=== PATIENT | female | born 1945 | race Caucasian/White ===

== ENCOUNTER 2023-06-23 08:10 | Emergency (ER) | payer MEDICARE, OTHER, SELFPAY ==
[2023-06-23] VITALS (7 sets, daily range): BP systolic 142–186; BP diastolic 68–99; PULSE 85–98; RESP 16–22; TEMP 36.4; O2SAT 94–95; BMI 29.9
--- NOTE | 2023-06-23 08:24 | ED.FALL ---
HPI - Fall General Chief Complaint: Fall Stated Complaint: fall, L wrist injury Time Seen by Provider: 06/23/23 08:24 Source: patient Mode of arrival: Ambulatory Limitations: no limitations History of Present Illness HPI Narrative: This is a 78-year-old on Eliquis with history of atrial fibrillation, hypertension, hypothyroidism, CHF with complaint of ground level fall. Patient states last night she went up to go use the bathroom she decided not to turn the lights on sort of lost track of where she was walking and missed the door way. She states she fell on her left arm. She did hit her head. She states no loss of consciousness, no headache, no neck or back pain, no chest pain or shortness of breath. No nausea or vomiting, no numbness tingling or weakness. She has pain in the left wrist that radiates upwards. It is painful to move her fingers but she denies any weakness numbness or tingling. She does have some bruising over the dorsum hand in the wrist. Patient states this happened last night. She lives independently with her . Patient states has had a prior lumpectomy. Former smoker, alcohol 1 drink nightly few times a week, denies any recreational drugs. Related Data Previous Rx's Medication Instructions Recorded tramadol 50 mg tablet 50 mg PO Q6H PRN pain #10 tabs 06/23/23 Allergies Allergy/AdvReac Type Severity Reaction Status Date / Time No Known Drug Allergies Allergy Verified 06/23/23 08:18 Review of Systems Review of Systems ROS Unobtainable: All systems reviewed & are unremarkable except as noted in HPI and below Patient History Social History Smoking Status: Former smoker Smoking Status: Former smoker alcohol intake frequency: a few times a week Alcohol type: wine Substance Use Type: does not use Exam Narrative Exam Narrative: GEN: Patient appears inmild distress. HEAD: No evidence of trauma, no raccoon/Arteaga sign. NECK: Nontender, painless range of motion, trachea midline Negative Nexus criteria, show midline line tenderness, distracting injury, altered mental status, neuro deficit, recent EtOH. EYES: PERRLA, EOMI ENT: External inspection normal, trachea is midline, Nares are clear, no septal hematoma, no dental or oral injury, airway is normal and with normal occlusion, No bony tenderness RESP: Chest is nontender and has symmetric movement, no ecchymosis, breath sounds are normal no crackles, wheezes or rales CVS: Heart sounds are normal, no murmur noted, No JVD. ABG/GI: Nontender, soft, normal bowel sounds, no distention, no organomegaly, pelvic rock is negative NEURO: Oriented AOx3, neuro is grossly intact, sensation and motor is normal all 4 extremities moving, cranial nerves II through XII are intact, GCS is 15 PSYCH: Normal mood and affect SKIN: Intact, warm and dry, no crepitus and without decubitus BACK: No CVA tenderness, no vertebral tenderness, no step-off's, no crepitus EXT: Patient has some swelling and ecchymosis of the left extending over the dorsum of the hand. No bony tenderness of the fingers, metacarpals. Patient is tender over the carpal bones. Does have little bit of mild deformity. Patient's has no bony tenderness of the elbow, humerus or shoulder. Has decreased movement at the wrist but otherwise normal range of movement of all 5 fingers with normal flexion, extension, adduction and abduction. Hips are nontender, no pedal edema, normal color and temperature, normal range of motion of extremities with normal tendon exam, 2+ pulses in all four extremities Initial Vital Signs Initial Vital Signs: Vital Signs Temperature 97.6 F 06/23/23 08:19 Pulse Rate 85 06/23/23 08:19 Respiratory Rate 18 06/23/23 08:19 Blood Pressure 186/99 H 06/23/23 08:19 Pulse Oximetry 95 06/23/23 08:19 Oxygen Delivery Method Room Air 06/23/23 08:19 Procedures Orthopedic Fracture Reduction Fracture #1: Side: left Fracture Reduction Location: radius and ulna Analgesia: hematoma block Technique: direct manipulation and traction/counter-traction Post-reduction neuro exam: intact and no change Post-reduction vascular exam: intact and no change Splint Applied: Yes Patient Tolerated Procedure: Well and No complications Orthopedic Splinting/Casting Injury #1: Upper Extremity Injury Location: wrist Upper Extremity Immobilizer: sugar tong splint Post splinting neuro exam: intact and no change Post splinting vascular exam: intact Placed by: Provider Scores [place] CT Head Rule Patient on blood thinners: Yes Age greater or equal to 65 years: Yes GCS [place] coma scale eye opening: Spontaneous [place] coma scale verbal response: Orientated [place] coma scale motor response: Obey commands [place] coma scale total score: 15 Course Orders Ordered: ED Orders 06/23/23 08:32 CT cervical spine wo con Stat CT head/brain wo con Stat XR wrist LT min 3V Stat Vital Signs Vital signs: Vital Signs - 8 hr 06/23/23 08:19 06/23/23 08:23 06/23/23 08:26 Temperature 97.6 F Pulse Rate 85 95 H Respiratory Rate 18 16 Blood Pressure 186/99 H Pulse Oximetry 95 95 Oxygen Delivery Method Room Air Room Air MDM - Fall Imaging Data CT scan - head: Radiologist's Impression: Close Wrist X-Ray 06/23/[address] (Signed) Sal Corado - 06/23/[address] (Signed) Sal Corado - 06/23/23 Launch?[place] [address] CT Scan Report Signed Patient: Janessa Feldman MR#: [id number] : 1945 Acct:[id number] Age/Sex: 78 / F Date of Service: 06/23/23 Loc: ED Accession Number: [id number] Procedure: CT head/brain wo con Ordering Provider: Naty Brown D.O. PROCEDURE: CT HEAD/BRAIN WO CON INDICATIONS: fall, left wrist pain, hit head on eliquis TECHNIQUE: Noncontrast 4.5 mm thick angled axial sections acquired from the foramen magnum to the vertex, with coronal and sagittal reformats. For radiation dose reduction, the following was used: automated exposure control, adjustment of mA and/or kV according to patient size. COMPARISON: None. FINDINGS: Image quality: Diagnostic. CSF spaces: Basal cisterns are patent. No extra-axial fluid collections. The ventricles are symmetric in size and shape. Brain: No intracranial bleeds or masses. There is cerebral volume loss for age, with resultant ventricular and sulcal prominence. There are periventricular and deep white matter chronic small vessel ischemic changes. There is intracranial internal carotid artery atherosclerosis. Skull and face: Calvarium and visualized facial bones appear intact, without suspicious lesions. Sinuses: Visualized sinuses and mastoids are clear. IMPRESSION: No acute intracranial pathology. Dictated by: Sal Corado M.D. on 06/23/2023 at 8:59 Approved by: Sal Corado M.D. on 06/23/2023 at 9:00 CT - cervical spine: Radiologist's Impression: Close Wrist X-Ray 06/23/[address] (Signed) Abner Coradoic - 06/23/[address] (Signed) Jose Coradoderic - 06/23/23 Launch?[address] [address] [address] Scan Report Signed Patient: Janessa Feldman MR#: [id number] : 1945 Acct:[id number] Age/Sex: 78 / F Date of Service: 06/23/23 Loc: ED Accession Number: [id number] Procedure: CT cervical spine wo con Ordering Provider: Naty Brown D.O. PROCEDURE: CT CERVICAL SPINE WO CON INDICATIONS: fall, left wrist pain, hit head on eliquis TECHNIQUE: Noncontrast 3 mm thick sections acquired from the skull base to the T4 level. Sagittal and coronal reformats were then constructed. For radiation dose reduction, the following was used: automated exposure control, adjustment of mA and/or kV according to patient size. COMPARISON: None. FINDINGS: Image quality: Excellent. Bones: No fractures or dislocations. Visualized superior ribs are intact. Mild cervical spondylosis. Soft tissues: Prevertebral soft tissues are normal in thickness. No paravertebral hematomas. No apical pneumothoraces. IMPRESSION: 1. No acute cervical fracture or dislocation. 2. Mild cervical spondylosis. Dictated by: Sal Corado M.D. on 06/23/2023 at 8:58 Approved by: Sal Corado M.D. on 06/23/2023 at 8:59 Extremity x-ray #1: Radiologist's Impression: Close Wrist X-Ray (Signed) [facility] - 06/23/[address] (Signed) [facility] - 06/23/[address] (Signed) [facility] - 06/23/23 Launch?[address] [address] XRay Report Signed Patient: Janessa Feldman MR#: [id number] : 1945 Acct:[id number] Age/Sex: 78 / F Date of Service: 06/23/23 Loc: ED Accession Number: [id number] Procedure: XR wrist LT min 3V Ordering Provider: Naty Brown D.O. PROCEDURE: XR WRIST LT MIN 3V INDICATIONS: fall, left wrist pain, hit head on eliquis TECHNIQUE: 4 views of the wrist were acquired. COMPARISON: None. FINDINGS: Bones: Impacted comminuted fracture of the distal radius extending to the articular surface with dorsal angulation of the major distal fragment. Comminuted associated distal ulna fracture, with overriding and displacement. No suspicious bony lesions. Primary osteoarthritis of the wrist. Findings are most significant involving the thumb carpometacarpal joint. Soft tissues: No suspicious soft tissue calcifications. IMPRESSION: 1. Comminuted impacted distal radius fracture with displacement and involvement of the articular surface and dorsal angulation. 2. Associated distal ulna comminuted fracture. Dictated by: Sal Corado M.D. on 06/23/2023 at 9:17 Approved by: Sal Corado M.D. on 06/23/2023 at 9:18 MDM Narrative Medical decision making narrative: Patient had mechanical ground level fall last night. Did hit her head is on Eliquis and based on age has a appropriate for head CT and C-spine, she does not have any neurologic complaints. Does have bruising and tenderness over the left wrist wrist x-ray was obtained as well. Head CT is negative. CT C-spine shows no acute change, mild cervical spondylosis. Wrist x-ray Comminuted impacted distal radius fracture with displacement involvement the articular surfaces and dorsal angulation, associated distal ulna comminuted fracture. Discussed with patient verbal consent for hematoma block. Splint was placed with myself and nursing with traction counter traction direct manipulation besides attempted improved alignment Patient neurovascularly intact placed. Discussed need for follow-up. All questions answered. Discussed return precautions including for head injury all questions answered. Discharge Plan Departure Patient Disposition: Home Clinical Impression: Fracture of wrist Instructions: How to Prevent Falls Activity Restrictions/Additional Instructions: Follow up with Orthopedic surgery in the next 10 days for recheck. Please call your office for an appointment today or tomorrow. Contact information is below. You may take Tylenol up to a 1000 mg every 6 hours as needed for pain. If inadequate for pain you can take narcotic pain medication 1-2 tablets every 6 hours as needed. This medication can make you sleepy do not drive, perform hazardous activities or make any major decisions while taking it. This medication will make you constipated please take a stool softener once to twice daily until stools are soft and regular. Prescription sent to [facility]. Splint Care: Keep splint clean and dry. Elevated affected body part to decrease swelling. OK to use ice pack on the affected body part. Use for 15-20 minutes each time, for 5-6x per day. If you develop worsening pain, numbness, tingling, discoloration of the affected body part, loosen the splint by loosening the DOMINIK wrap, and either see your doctor for an urgent re-assessment, or return to the Emergency Department. Return to the Emergency Department for any new or worsening symptoms. Prescriptions: New tramadol 50 mg tablet 50 mg PO Q6H PRN (Reason: pain) Qty: 10 0RF Referrals: Stevan León MD [Physician] - Stand Alone Forms: Patient Portal/API
--- NOTE | 2023-06-23 08:32 | DI.RAD.S_ITS ---
PROCEDURE: XR WRIST LT MIN 3V INDICATIONS: fall, left wrist pain, hit head on eliquis TECHNIQUE: 4 views of the wrist were acquired. COMPARISON: None. FINDINGS: Bones: Impacted comminuted fracture of the distal radius extending to the articular surface with dorsal angulation of the major distal fragment. Comminuted associated distal ulna fracture, with overriding and displacement. No suspicious bony lesions. Primary osteoarthritis of the wrist. Findings are most significant involving the thumb carpometacarpal joint. Soft tissues: No suspicious soft tissue calcifications. IMPRESSION: 1. Comminuted impacted distal radius fracture with displacement and involvement of the articular surface and dorsal angulation. 2. Associated distal ulna comminuted fracture. Dictated by: Sal Corado M.D. on 06/23/2023 at 9:17 Approved by: Sal Corado M.D. on 06/23/2023 at 9:18
--- NOTE | 2023-06-23 08:32 | DI.CT.S_ITS ---
PROCEDURE: CT CERVICAL SPINE WO CON INDICATIONS: fall, left wrist pain, hit head on eliquis TECHNIQUE: Noncontrast 3 mm thick sections acquired from the skull base to the T4 level. Sagittal and coronal reformats were then constructed. For radiation dose reduction, the following was used: automated exposure control, adjustment of mA and/or kV according to patient size. COMPARISON: None. FINDINGS: Image quality: Excellent. Bones: No fractures or dislocations. Visualized superior ribs are intact. Mild cervical spondylosis. Soft tissues: Prevertebral soft tissues are normal in thickness. No paravertebral hematomas. No apical pneumothoraces. IMPRESSION: 1. No acute cervical fracture or dislocation. 2. Mild cervical spondylosis. Dictated by: Sal Corado M.D. on 06/23/2023 at 8:58 Approved by: Sal Corado M.D. on 06/23/2023 at 8:59
--- NOTE | 2023-06-23 08:32 | DI.CT.S_ITS ---
PROCEDURE: CT HEAD/BRAIN WO CON INDICATIONS: fall, left wrist pain, hit head on eliquis TECHNIQUE: Noncontrast 4.5 mm thick angled axial sections acquired from the foramen magnum to the vertex, with coronal and sagittal reformats. For radiation dose reduction, the following was used: automated exposure control, adjustment of mA and/or kV according to patient size. COMPARISON: None. FINDINGS: Image quality: Diagnostic. CSF spaces: Basal cisterns are patent. No extra-axial fluid collections. The ventricles are symmetric in size and shape. Brain: No intracranial bleeds or masses. There is cerebral volume loss for age, with resultant ventricular and sulcal prominence. There are periventricular and deep white matter chronic small vessel ischemic changes. There is intracranial internal carotid artery atherosclerosis. Skull and face: Calvarium and visualized facial bones appear intact, without suspicious lesions. Sinuses: Visualized sinuses and mastoids are clear. IMPRESSION: No acute intracranial pathology. Dictated by: Sal Corado M.D. on 06/23/2023 at 8:59 Approved by: Sal Corado M.D. on 06/23/2023 at 9:00
== END 2023-06-23 10:47 | disposition home or self-care (01) ==
PROVIDERS: Emergency Provider Emergency Medicine
DX: S52.502A Unspecified fracture of the lower end of left radius, initial encounter for closed fracture (principal); S52.202A Unspecified fracture of shaft of left ulna, initial encounter for closed fracture; S09.90XA Unspecified injury of head, initial encounter; W18.30XA Fall on same level, unspecified, initial encounter; Z79.01 Long term (current) use of anticoagulants
CPT/HCPCS: 25605; 29105; 70450; 72125; 73110; 99284

== ENCOUNTER 2023-06-27 09:20 | Day surgery (SDC) | payer MEDICARE, OTHER, SELFPAY ==
[2023-06-27] VITALS (7 sets, daily range): BP systolic 132–156; BP diastolic 82–99; PULSE 67–92; RESP 12–20; TEMP 36.6–37.2; O2SAT 93–96; BMI 30.1
[2023-06-27] MEDS: LACTATED RINGERS 1,000 ML 42 ML IV (10:25)
--- NOTE | 2023-06-27 11:06 | SUR.OPER ---
Supine on padded stretcher, head on pillow, non op arm resting at patients side, operative arm free for manipulation, legs uncrossed, safety belt at thigh, tape over blanket over lower legs.
--- NOTE | 2023-06-27 11:39 | PM.PREOP ---
Pre-operative Note Interval Note History & Physical reviewed/Exam performed by Physician: Yes Changes to H&P: No
--- NOTE | 2023-06-27 11:41 | PM.HP.1 ---
History of Present Illness History of Present Illness Date Patient Seen: 06/27/23 Time Patient Seen: 11:42 Chief complaint: Closed Reduction Left Wrist Narrative: 78-year-old female patient evaluated in the preoperative holding area today. She sustained a left distal radius fracture over the weekend. She was provisionally splinted. She was seen in clinic yesterday for follow-up. As she remained unreduced did not feel like she would be able to tolerate a reduction in the clinic setting so I had her come here today for closed reduction under anesthesia and casting. I discussed the risks and benefits of operative versus nonoperative treatment. I explained that nonoperative treatment could result in slight shortening of the wrist as well as a dorsal bump. She understood these risks and wished to proceed with nonoperative treatment [facility] Social History household members: spouse Smoking Status: Former smoker Meds Home Medications and Allergies Home Medications Medication Instructions Recorded Confirmed Type tramadol 50 mg tablet 50 mg PO Q6H PRN pain #10 tabs 06/23/23 06/27/23 Rx apixaban 5 mg tablet (Eliquis) 5 mg PO BID 06/27/23 06/27/23 History atorvastatin 10 mg tablet 10 mg PO DAILY 06/27/23 06/27/23 History digoxin 125 mcg (0.125 mg) tablet 125 mcg PO DAILY 06/27/23 06/27/23 History hydrochlorothiazide 25 mg tablet 25 mg PO DAILY 06/27/23 06/27/23 History levothyroxine 50 mcg tablet 50 mcg PO DAILY 06/27/23 06/27/23 History nebivolol 20 mg tablet 20 mg PO DAILY 06/27/23 06/27/23 History pantoprazole 40 mg tablet,delayed 40 mg PO DAILY 06/27/23 06/27/23 History release sertraline 100 mg tablet 100 mg PO DAILY 06/27/23 06/27/23 History Allergies Allergy/AdvReac Type Severity Reaction Status Date / Time No Known Drug Allergies Allergy Verified 06/23/23 08:18 Review of Systems Review of Systems ROS: Yes All systems reviewed with the patient and are negative except as otherwise documented Exam Vital Signs (past 8 hours): - 06/27/23 10:11 Temperature 98.1 F Pulse Rate 90 Respiratory Rate 16 Blood Pressure 132/82 Pulse Oximetry 93 Oxygen Delivery Method Room Air Oxygen Delivery Method Room Air Narrative Exam Narrative: Left upper extremity in a splint. Errol wrap in place. Sensation intact to light touch in median ulnar and radial nerve distributions. Gives thumbs up cross his fingers make the okay sign Const General: cooperative Orientation: alert and awake HENMT Head: normal to inspection Ears: hearing grossly normal bilaterally Eyes General: appearance normal, both eyes and all related structures Neck Neck: normal visual inspection Resp Effort & Inspection: normal respiratory effort and able to speak in complete sentences Cardio Pulses: other (peripheral pulses present) Skin Lesions: no lesions Rashes: no rashes Neuro General: patient alert, patient awake and moves all extremities Psych Appearance: grossly normal Assessment & Plan Assessment and plan (1) Fracture of wrist: Status: Acute Plan Closed reduction and casting of left distal radius be performed today. Plan for discharge from PACU. Follow up in the outpatient setting
--- NOTE | 2023-06-27 12:25 | PM.OP.1 ---
Operative Date/Time/Diagnoses Date of procedure: 06/27/23 Pre-op diagnosis: Left distal radius fracture Post-op diagnosis: same Procedure & Clinicians Procedure: Closed reduction and casting of left wrist Same procedure as scheduled: Yes Surgeon: Stevan León Regional Medical Director: Eladia Spencer Anesthesia Type: Sedation Operative Notes Procedure in detail: This 78-year-old female patient was evaluated for a left distal radius fracture. Operative versus nonoperative treatment was discussed with her. Nonoperative treatment was recommended given the extra-articular nature of the fracture as well as her age. I discussed with her the possibility of deformity, particularly shortening and a dorsal bump on the wrist. She understood these possible sequelae of nonoperative treatment and wished to proceed with this. She was brought back to the operating room and sedation was utilized. A time-out procedure was performed. Her splint was removed. Fluoroscopy was obtained demonstrating persistent displacement of the fracture. The fracture was reduced by recreating the deformity with the assistance of a physician laundry assistant for counter pressure and then reducing it volarly. A palpable clunk was appreciated at this time. A cast was then applied. An interosseous mold and a 3 point mold were utilized to hold the fracture reduction. The cast was allowed to dry. Fluoroscopic images were obtained demonstrating good reduction on the lateral view and AP view. She did have slight shortening of the wrist. Alignment and rotation were appropriate. She was awoken from anesthesia and transferred to the PACU where she has a woken without any immediate apparent complication Post-operative Plan for aftercare: Maintain cast for 6 weeks. Follow up in the outpatient setting for cast removal around that time with transition to a wrist brace.
[2023-06-27] MEDS: ACETAMINOPHEN 325 MG TABLET 975 MG PO (12:30)
[2023-06-27] MEDS: OXYCODONE IR 5 MG TABLET PO ×2 (12:30→13:13)
== END 2023-06-27 13:37 | disposition home or self-care (01) ==
PROVIDERS: PCP Nurse Practitioner; Referring Provider Orthopaedic Surgery Adult Reconstructive Orthopaedic Surgery; Visit Provider Orthopaedic Surgery Adult Reconstructive Orthopaedic Surgery
PROC: (CPT 25680; principal; 2023-06-27 10:45)
DX: S52.502A Unspecified fracture of the lower end of left radius, initial encounter for closed fracture (principal)
CPT/HCPCS: 25680; J2704